=== PATIENT | female | born 1950 | race Caucasian/White ===

== ENCOUNTER → 2020-08-13 09:03 | Outpatient (BNVA) | payer MEDICARE, SELFPAY | PROVIDERS: PCP Internal Medicine; Referring Provider Internal Medicine; Visit Provider Internal Medicine Endocrinology, Diabetes & Metabolism | DX: E03.9 Hypothyroidism, unspecified (principal); M81.0 Age-related osteoporosis without current pathological fracture; Z85.850 Personal history of malignant neoplasm of thyroid; Z79.899 Other long term (current) drug therapy | CPT/HCPCS: 99212 ==

== ENCOUNTER 2020-08-13 09:45 | Outpatient (REF) | payer MEDICARE, SELFPAY ==
[2020-08-13 11:11] LABS: Free T4 (Free Thyroxine) 1.14 ng/dL (0.71-1.85); Thyroid Stimulating Hormone 0.14 uIU/mL (0.32-4.0); Vitamin D 25-OH Total 37.2 ng/mL (>30)
[2020-08-16 06:32] LABS: Thyroglobulin Antibody <1 IU/mL (<=1); Thyroglobulin Level 0.4 ng/mL
[2020-08-19 06:51] LABS: N-Telopeptide 12 (see note); NTXCreaRU 43 mg/dL (20-275)
== END 2020-08-13 09:46 | disposition home or self-care (01) ==
LOC: HO.10HDL 09:45
PROVIDERS: Visit Provider Internal Medicine Endocrinology, Diabetes & Metabolism
DX: M81.0 Age-related osteoporosis without current pathological fracture (principal); Z85.850 Personal history of malignant neoplasm of thyroid
CPT/HCPCS: 36415; 82306; 82523; 84432; 84439; 84443; 86800; 99212

== ENCOUNTER → 2021-08-13 10:31 | Outpatient (BNVA) | payer MEDICARE, SELFPAY | PROVIDERS: PCP Internal Medicine; Visit Provider Internal Medicine Endocrinology, Diabetes & Metabolism | DX: Z13.89 Encounter for screening for other disorder (principal) | CPT/HCPCS: 99212 ==

== ENCOUNTER 2021-08-13 11:05 | Outpatient (REF) | payer MEDICARE, SELFPAY ==
[2021-08-13 14:09] LABS: Free T4 (Free Thyroxine) 1.34 ng/dL (0.71-1.85); Thyroid Stimulating Hormone 0.43 uIU/mL (0.32-4.0)
[2021-08-18 07:52] LABS: Thyroglobulin Antibody <1 IU/mL (<=1); Thyroglobulin Level 0.4 ng/mL
== END 2021-08-13 11:06 | disposition home or self-care (01) ==
LOC: HO.10HDL 11:05
PROVIDERS: Visit Provider Internal Medicine Endocrinology, Diabetes & Metabolism
DX: M81.0 Age-related osteoporosis without current pathological fracture (principal); E03.9 Hypothyroidism, unspecified; Z79.899 Other long term (current) drug therapy; Z85.850 Personal history of malignant neoplasm of thyroid
CPT/HCPCS: 36415; 84432; 84439; 84443; 86800; 99212

== ENCOUNTER 2021-08-28 13:03 | Outpatient (REF) | payer MEDICARE, SELFPAY ==
--- NOTE | ~2021-08-28 | MM_ITS ---
EXAMINATION: BONE DENSITOMETRY CLINICAL INDICATION: Age-related osteoporosis without current pathological fracture. COMPARISON: Baseline BD dated 04/07/2019. TECHNIQUE: Using a [employer] DXA System (software version: 13.1) manufactured by [employer], dual-energy x-ray absorptiometry was performed of the lumbar spine and left hip. The images are of good technical quality. Summary results are attached. FINDINGS: AP SPINE L1-L3 (excluding L4): The data of L1-L4 has been changed to exclude the L4 vertebral body, because degenerative changes at this level may cause overestimation of lumbar spine density. Current: BMD 1.034 g/cm2, Z-score 0.4, T-score -1.1, osteopenia, 0.1% increase from baseline (<5% change is not significant). Baseline: BMD 1.033 g/cm2. LEFT FEMUR, NECK: Current: BMD 0.955 g/cm2, Z-score 1.1, T-score -0.6, normal. Baseline: BMD 0.916 g/cm2. LEFT FEMUR, TOTAL: Current: BMD 0.884 g/cm2, Z-score 0.5, T-score -1.0, normal, 0.2% decrease from baseline (<5% change is not significant). Baseline: BMD 0.886 g/cm2. IDENTIFIED RISK FACTORS: Osteoporosis, history of fracture (adult), height loss. Early menopause, secondary osteoporosis. HISTORY OF FRACTURE: Clavicle. MEDICATIONS: Vitamin D, ERT/SERMS. MM/XR DEXA axial skeleton IMPRESSION: 1. DIAGNOSIS: Osteopenia based on the lowest T-score value of -1.1 in the lumbar spine applying World Health Organization criteria. 2. 10-YEAR FRACTURE RISK PREDICTION, FRAX: Major osteoporotic fracture (clinical spine, forearm, hip or shoulder) 13.5%. Hip fracture 1.3%. 3. Treatment Recommendations: NOF guidelines recommend consideration for treatment in postmenopausal women and men age 50 and older presenting with the following: -A hip or vertebral (clinical or morphometric) fracture. -T-score less than or equal to -2.5 at the femoral neck or spine after appropriate evaluation to exclude secondary causes. -Low bone mass at the hip or spine and a 10-year fracture probability by FRAX of greater than or equal to 3% for hip fracture or greater than or equal to 20% for major osteoporotic fracture based on the [place] adapted WHO algorithm. 4. Other Recommendations: All treatment decisions require clinical judgment and consideration of individual patient factors, including patient preferences, comorbidities, previous drug use, risk factors not captured in the FRAX model (e.g. frailty, falls, vitamin D deficiency, increased bone turnover, interval significant decline in bone density) and possible under or overestimation of fracture risk by FRAX. Additional medical evaluation for secondary cause of low bone mineral density may be appropriate. FUTURE SCAN RECOMMENDATION: People with diagnosed cases of osteoporosis or at high risk for fracture should have regular bone mineral density tests. For patients eligible for Medicare, routine testing is allowed once every 2 years. The testing frequency can be increased to one year for patients who have rapidly progressing disease, those who are receiving or discontinuing medical therapy to restore bone mass, or have additional risk factors.
== END 2021-08-28 13:04 | disposition home or self-care (01) ==
LOC: HO.MAMMO 13:03
PROVIDERS: PCP Internal Medicine Endocrinology, Diabetes & Metabolism; Visit Provider Internal Medicine Endocrinology, Diabetes & Metabolism
DX: Z13.820 Encounter for screening for osteoporosis (principal); M81.0 Age-related osteoporosis without current pathological fracture; Z78.0 Asymptomatic menopausal state
CPT/HCPCS: 77080

== ENCOUNTER → 2022-02-11 10:35 | Outpatient (BNVA) | payer MEDICARE, SELFPAY | PROVIDERS: PCP Internal Medicine; Visit Provider Internal Medicine Endocrinology, Diabetes & Metabolism | DX: M81.0 Age-related osteoporosis without current pathological fracture (principal); Z85.850 Personal history of malignant neoplasm of thyroid | CPT/HCPCS: 99212 ==

== ENCOUNTER 2023-05-20 09:25 | Outpatient (AMB) | payer MEDICARE, SELFPAY ==
[2023-05-20 09:27] VITALS: BP 102/72; PULSE 57; BMI 22.5
--- NOTE | 2023-05-20 09:27 | MHC.OFFVIS ---
Intake Vital Signs 05/20/23 09:27 Height 5 ft 7 in Weight 143 lb 15.39 oz BMI 22.5 BP 102/72 Blood Pressure Location Lt brachial Position Sitting Pulse 57 Pulse Source Pulse Oximeter Intake Visit Reasons: f/u thyroid cancer and osteoporosis-lvm Intake Note: Patient present today for Thyroid cancer and Osteoporosis follow up visit. [employer] Required: No Accompanied by: Self / Same As Patient Allergies levofloxacin Adverse Reaction (Mild, Verified 05/20/23 09:33) Unknown citric acid Allergy (Unknown, Uncoded 08/13/21 10:34) Unknown clindomycin Allergy (Unknown, Uncoded 08/13/21 10:34) Unknown keflex Allergy (Unknown, Uncoded 08/13/21 10:34) Unknown lactose Allergy (Unknown, Uncoded 08/13/21 10:34) Unknown latex Allergy (Unknown, Uncoded 08/13/21 10:34) Unknown macrobid Allergy (Unknown, Uncoded 08/13/21 10:34) shortness of breath oxycontin Allergy (Unknown, Uncoded 08/13/21 10:34) shortness of breath penicillin Allergy (Unknown, Uncoded 08/13/21 10:34) itching Medication List - Last Reconciled 05/20/23 by Antonio Loyola MD cholecalciferol (vitamin D3) 50 mcg PO DAILY 90 days cyanocobalamin (vitamin B-12) 1,000 mcg PO DAILY levothyroxine 100 mcg PO DAILY vitamin E 400 units PO 3X/WEEK; HPI HPI Comments History of Present Illness Details 72 -year-old female today follow-up visit she was last seen for hypothyroidism, thyroid cancer . She is feeling well. Patient has history of a nontoxic multinodular goiter, she had total thyroidectomy 1995 at [facility]. She reports having thyroid cancer. She did not have any ablation as she does have residual tissue in the ultrasound. History of breast cancer treated with lumpectomy and currently on tamoxifen. He does have hypothyroidism, he has been on levothyroxine replacement since . She is currently on levothyroxine 100 mcg daily. She is 100% adherent and she has a incorrect method of administration. She takes her thyroid hormone replacement with other pill. She denies hot or cold intolerance, her weight is stable but due to changes in her diet. She denies diarrhea, constipation, imsomnia, fatigue, dry skin, dysphagia, dyspnea,, denies tremors, palpitations, irritability, anxiety. Family History: She believes her mother had thyroid issues but no other known thyroid disease in the family. She also has past medical history of osteoporosis. During cancer treatment she had 4 infusions of Reclast, infusions were every 6 months. The last infusion was on December 2017. She reports not having a follow-up bone density in the last 2 years. She denies any fragility fracture. She denies history of osteoporosis or fragility fractures in her mother or other family members. She reports she had hysterectomy around age 38 but she does not remember if her ovaries were removed. She reports having history estrogen replacement several times during her life, but she is not sure what was the reason why she got estrogen. She is currently taking vitamin-D 2000 international units daily. FINDINGS: 08/28/21 AP SPINE L1-L3 (excluding L4): The data of L1-L4 has been changed to exclude the L4 vertebral body, because degenerative changes at this level may cause overestimation of lumbar spine density. Current: BMD 1.034 g/cm2, Z-score 0.4, T-score -1.1, osteopenia, 0.1% increase from baseline (<5% change is not significant). Baseline: BMD 1.033 g/cm2. LEFT FEMUR, NECK: Current: BMD 0.955 g/cm2, Z-score 1.1, T-score -0.6, normal. Baseline: BMD 0.916 g/cm2. LEFT FEMUR, TOTAL: Current: BMD 0.884 g/cm2, Z-score 0.5, T-score -1.0, normal, 0.2% decrease from baseline (<5% change is not significant). Baseline: BMD 0.886 g/cm2. IDENTIFIED RISK FACTORS: Osteoporosis, history of fracture (adult), height loss. Early menopause, secondary osteoporosis. HISTORY OF FRACTURE: Clavicle. MEDICATIONS: Vitamin D, ERT/SERMS. MM/XR DEXA axial skeleton IMPRESSION: 1. DIAGNOSIS: Osteopenia based on the lowest T-score value of -1.1 in the lumbar spine applying World Health Organization crit 03/22/19 neck US Right Thyroid Lobe: 0.8 x 0.6 x 0.6 cm, volume 0.2 mL. Question small thyroid versus residual tissue from partial thyroidectomy. Parenchyma: The gland echotexture is homogeneous. Thyroid vascularity is increased. Left Thyroid Lobe: 1.5 x 0.6 x 0.8 cm, volume 0.3 mL. Question small thyroid versus residual tissue from partial thyroidectomy. By history, patient is status post left thyroidectomy. Parenchyma: The gland echotexture is homogeneous. Thyroid vascularity is increased. Isthmus: 0.2 cm in maximum AP dimension. RIGHT THYROID LOBE: No nodules. ISTHMUS: No nodules. LEFT THYROID LOBE: No nodules. NODES: No lymphadenopathy is seen in the tissue surrounding the thyroid gland. Laboratory Tests 03/17/19 03/17/19 03/17/19 09:15 09:20 09:20 Creatinine 0.87 Est GFR (Non-Af Am er) > 60 Calcium 9.0 Albumin 4.3 N-Telopeptide X-li nked 12 25-OH Vitamin D To tony Free T4 Thyroglobulin TSH 3rd Generation PTH Intact 28 Thyroglobulin Anti body Thyroid Peroxidase Ab 1 12/14/19 12/14/19 13:44 13:44 Creatinine Est GFR (Non-Af Am er) Calcium Albumin N-Telopeptide X-li nked 25-OH Vitamin D To tony 31.6 Free T4 1.19 Thyroglobulin 0.6 H TSH 3rd Generation 0.68 PTH Intact Thyroglobulin Anti body <1 Thyroid Peroxidase Ab Hospitalized for 6 days 5 wks ago for diverticulitis . No symptoms of hypothyroidism or hyperthyroidism [facility] Medical History (Updated 08/13/20 @ 09:16 by Meghan Miner MD) Osteoporosis Non-toxic multinodular goiter History of thyroid cancer Hypothyroidism Surgical History History of lumpectomy of left breast Hx of partial thyroidectomy Hx of tonsillectomy Family History Father No problems noted. Mother Stroke Sister Diabetes mellitus Social History (Updated 02/11/22 @ 10:41 by TERESA Arreola) Household Members: None Alcohol intake: current Alcohol intake frequency: does not drink Patient Tobacco Use Status: Former Tobacco user Quit Date: Physical Exam Const Other: There is a healed scar status post partial thyroidectomy There is no cervical adenopathy palpated. Assessment & Plan Assessment & Plan (1) History of thyroid cancer: Code(s): Z85.850 - Personal history of malignant neoplasm of thyroid Plan: 72-year-old white female with a history of partial thyroidectomy with reported thyroid cancer? Ultrasound done in 2019 did not show evidence of persistence or recurrence of thyroid cancer. She has had a slightly detectable thyroglobulin but did not receive radioactive iodine ablation. This has remained stable. She is currently replaced with levothyroxine 100 mcg. She is clinically and biochemically euthyroid Plan is to check TSH and free T4 . If above is normal, patient can continue current therapy and follow up with primary care provider who can check TSH and free T4 perhaps every 6 months to 1 year's time. There is no need to keep following thyroglobulin or neck ultrasound as they have been stable the patient is probably cured of the thyroid cancer. She returned back to endocrinology as needed (2) Osteoporosis: Code(s): M81.0 - Age-related osteoporosis without current pathological fracture Plan: DEXA bone density shows continued presence of low bone mass and stable. . Should continue calcium and vitamin-D supplementation. At this point, patient can follow up with the primary care provider. Her primary care provider can recheck a DEXA bone density in about 3-4 months' time and if there is progression to osteoporosis, pharmacologic therapy with a bisphosphonate can be started by the patient's primary care provider will should be referred back to endocrinology Coding Level of Care Code Est Pt Level 3 (12941) Diagnoses History of thyroid cancer Z85.850 Osteoporosis M81.0
== END 2023-05-20 09:42 | disposition home or self-care (01) ==
PROVIDERS: PCP Internal Medicine; Visit Provider Internal Medicine Endocrinology, Diabetes & Metabolism
DX: Z85.850 Personal history of malignant neoplasm of thyroid (principal); M81.0 Age-related osteoporosis without current pathological fracture
CPT/HCPCS: 99213

== ENCOUNTER 2023-05-20 09:25 | Outpatient (REF) | payer MEDICARE, SELFPAY ==
[2023-05-20 11:42] LABS: Free T4 (Free Thyroxine) 1.27 ng/dL (0.71-1.85); Thyroid Stimulating Hormone 0.38 uIU/mL (0.32-4.0)
== END 2023-05-20 09:26 | disposition home or self-care (01) ==
LOC: HO.LAB 09:25
PROVIDERS: PCP Internal Medicine; Visit Provider Internal Medicine Endocrinology, Diabetes & Metabolism
DX: E03.9 Hypothyroidism, unspecified (principal); M81.0 Age-related osteoporosis without current pathological fracture; Z85.850 Personal history of malignant neoplasm of thyroid
CPT/HCPCS: 36415; 84439; 84443; 99212